=== PATIENT | male | born 1980 | race Caucasian/White ===

== ENCOUNTER 2018-07-28 13:47 | Emergency (ER) | payer SELFPAY ==
[~2018-07-28] VITALS: Ht 182.9 cm; Wt 102.1 kg
[2018-07-28 13:51] VITALS: BP 127/80
== END 2018-07-28 15:44 | disposition home or self-care (01) ==
LOC: ER 13:47
DX: S46.912A Strain of unspecified muscle, fascia and tendon at shoulder and upper arm level, left arm, initial encounter (principal); S39.012A Strain of muscle, fascia and tendon of lower back, initial encounter; R51 Headache; V43.52XA Car driver injured in collision with other type car in traffic accident, initial encounter; Y93.89 Activity, other specified; Y99.8 Other external cause status; Y92.410 Unspecified street and highway as the place of occurrence of the external cause
CPT/HCPCS: 70450